=== PATIENT | male | born 1955 | race Caucasian/White ===

== ENCOUNTER 2018-07-28 10:23 | Day surgery (SDC) | payer BC, OTHER ==
[2018-07-24 14:02] VITALS: BMI 29.4
[2018-07-28] MEDS ORDERED: LIDOCAINE HCL 1%, 10 MG/ML (20ML VIAL) ONE ×2 (11:30→12:30)
[2018-07-28 11:35] VITALS: TEMP 97.8
[2018-07-28] MEDS ORDERED: PROPOFOL 20 ML ONE ×2 (12:16)
[2018-07-28] MEDS ORDERED: LIDOCAINE HCL/PF 2% SDV 5ML VIAL ONE (12:16)
[2018-07-28] MEDS ORDERED: fentaNYL CITRATE 250 MCG/5 ML VIAL ONE (12:16)
[2018-07-28] MEDS ORDERED: ceFAZolin SODIUM 1 GM VIAL ONE (12:16)
[2018-07-28] MEDS ORDERED: MIDAZOLAM HCL 2 MG/2 ML SINGLE DOSE VIAL ONE (12:17)
[2018-07-28] MEDS ORDERED: ceFAZolin SODIUM 1 GM VIAL IVPB ONE (12:36)
[2018-07-28] MEDS ORDERED: LIDOCAINE HCL 1%, 10 MG/ML (20ML VIAL) NR ONE (12:54)
[2018-07-28] MEDS ORDERED: BUPIVACAINE HCL/PF 0.5% (5MG/ML) 10 ML VIAL IJ ONE (14:30)
[2018-07-28] MEDS ORDERED: IBUPROFEN 800 MG/8 ML IJ IVPB PRN (15:04)
[2018-07-28] MEDS ORDERED: ONDANSETRON 4 MG/2 ML VIAL IVPUSH PRN (15:04)
[2018-07-28] MEDS ORDERED: oxyCODONE HCL 5 MG TABLET PO PRN (15:04)
[2018-07-28] MEDS ORDERED: LACTATED RINGERS SOLUTION 1,000 ML IV SCH (15:15)
[2018-07-28] MEDS ORDERED: oxyCODONE HCL 5 MG TABLET ONE (17:09)
[2018-07-28 18:33] VITALS: BP 130/71; PULSE 67
--- NOTE | 2018-07-31 13:44 | OP ---
DATE OF OPERATION: 07/28/2018 SURGEONS: Eduardo Samuel DPM and Kris Wright DPM CERTIFIED PHARMACIST ASSISTANT: Mallory Steward, PGY-3 PREOPERATIVE DIAGNOSES: 1. Left foot hallux rigidus. 2. Right foot bunion. POSTOPERATIVE DIAGNOSES: 1. Left foot hallux rigidus. 2. Right foot bunion. PROCEDURE: 1. Left hallux first metatarsophalangeal joint fusion using plate and screws. 2. Right foot Espino bunionectomy. ANESTHESIA: General. PATHOLOGY: Bone and soft tissue. ESTIMATED BLOOD LOSS: 5 mL. HEMOSTASIS: Bilateral ankle tourniquet at 250 mmHg. MATERIALS USED: [place] metatarsal phalangeal joint plate, fusion plate, medium. A 3.5 18-mm locking screw and 3.5 18-mm nonlocking screw, 3.5 14-mm nonlocking screw, 3.5 30-mm cannulated screw, 3.5 16-mm nonlocking screw, and 3.5 20-mm locking screw. Postoperative dressing such as Betadine-soaked Adaptic, 4 x 4's, sterile gauze, Kerlix, and Dominguez bandage used. INJECTABLES: Twenty mL of a 1:1 mixture of 1% lidocaine plain and 0.5% Marcaine plain used for left foot and 15 mL of 1:1 mixture of 1% lidocaine plain and 0.5% Marcaine plain used for right foot. CONDITION OF THE PATIENT: Stable. COMPLICATIONS: None. DESCRIPTION: The patient was brought to the operating room and placed on the operating table in a supine position. A pneumatic ankle tourniquet was then placed on the patient's left ankle. Following general anesthesia, the local anesthesia was obtained using a 1:1 mixture of 1% lidocaine plain with epi. Preoperatively 20 mL was injected throughout the surgical site. The left foot was then scrubbed, prepped, and draped in the usual aseptic manner. An Esmarch bandage was then utilized to exsanguinate the patient's left foot, and the tourniquet was then inflated. Attention was first directed to the dorsal aspect of the first metatarsal of the left foot where a linear incision was made medial and parallel to the tendon of extensor hallucis longus. Incision was then deepened through the subcutaneous tissue using sharp and blunt dissection. Care was taken to identify all vital neural and vascular structures. All bleeders were ligated and cauterized as necessary. At this time, a linear capsulotomy was then performed over the dorsal aspect of the first metatarsophalangeal joint, left foot. The periosteal and capsular structures were then carefully dissected medially and laterally thus exposing the head of the first metatarsal. Attention was first directed to the dorsal aspect of the metatarsal head where the osteophytes were noted, and severe cartilaginous damage was noted to the head of the first metatarsal. Using a rongeur, the dorsal osteophytes were removed from the head of the first metatarsal left foot as well as the base of the proximal phalanx. Using the sagittal saw, the medial prominence, bony prominence was then resected and passed from the operative field and sent to Pathology. All the sharp edges were then smoothened using a rongeur. Next the size of the head was then assessed, and 6.2 K-wire was inserted across the fifth metatarsal to set up the fusion dorsal plate apparatus. Next using the reamer, the head of the first metatarsal was resected about 2 mm for better [id number] contact. At this time, using a [place] plate, metatarsophalangeal joint fusion plate, which was used on the dorsal aspect of the first metatarsophalangeal joint and it was fixated with screws both locking and nonlocking. Also, a 30-mm 3.5 cannulated partially threaded screw was inserted as a compression screw across the osteotomy site across the joint. The initial K-wire was removed and passed from the operative field. At this time the position was accessed and appeared to be in perfect alignment on weightbearing status. The wound was then irrigated with copious amounts or normal saline with bacitracin in it, and the capsular and subcutaneous tissues were sutured using 2-0, 3-0, and 4-0 Vicryl sutures. Skin was closed using 4-0 nylon suture. Postoperative dressing was applied to the left foot which was Betadine-soaked Adaptic, 4 x 4's, sterile gauze, Kerlix, and Dominguez bandage. The left ankle tourniquet was then deflated at this time, and immediate hyperemia was returned to all the digits of the left foot. Next attention was brought to the right foot great toe. The right ankle tourniquet was then inflated. Attention was first directed to the medial aspect of the first metatarsal head of the right foot where a linear incision was made medial and parallel to the tendon of extensor hallucis longus. The incision was then deepened through the subcutaneous tissue using sharp and blunt dissection. Care was taken to identify all vital neural and vascular structures. All bleeders were ligated and cauterized as necessary. At this time a linear capsulotomy was then performed over the dorsal aspect of the first metatarsophalangeal joint. The periosteal and capsular structures were then carefully dissected medially and laterally thus exposing the head of the first metatarsal. Attention was first directed to the medial aspect of the first metatarsal head. Using a sagittal saw, the medial prominence was then resected and passed from the operative field. At this time, the position was accessed, and great position was noted. The wound was then irrigated with copious amounts or normal saline, and the capsular and subcutaneous structures were sutured using 2-0, 3-0, and 4-0 Vicryl sutures. Skin was closed using 4-0 nylon suture. At this time, postoperative dressing was applied to the right foot such as Betadine-soaked Adaptic, 4 x 4's, sterile gauze, Kerlix, and Dominguez bandage, and right ankle tourniquet was then deflated, and immediate hyperemia was returned to all the digits of the right foot. Patient tolerated the procedure and anesthesia well and was transferred to the postanesthesia care unit with vital signs stable and vascular status intact to bilateral lower extremities. Patient will be discharged home after followup with Podiatry and patient was already given instructions and prescriptions which were discussed prior to surgery. Dr. Steward, PGY-3, dictating for LEAH Sexton DPM [id number]
--- NOTE | 2018-08-01 14:06 | PATH ---
Surgical Pathology Report Patient Name: [facility]. Rec. #: [id number] /Age/Gender: 1955 (Age: 63) / M Account: [id number] Location: [facility] SURGICAL Taken: 07/28/2018 Received: 07/31/2018 Reported: 08/01/2018 Physicians: Kris Wright DPM Specimen(s) Received A: BONE LEFT FOOT B: BONE RIGHT FOOT Clinical History Degenerative joint disease, bilateral hallux Final Diagnosis A. FOOT, LEFT, BONE, METATARSOPHALANGEAL JOINT FUSION: BONE WITH DEGENERATIVE CHANGES. B. FOOT, RIGHT, BONE, BUNIONECTOMY: BONE WITH DEGENERATIVE CHANGES. Electronically Signed Tiffany Garrison M.D. Gross Description A. Received in formalin labeled "bone left foot," is a 3.5 x 3.3 x 0.3 cm aggregate of zimmer-yellow, irregular portions of bone. Silk Screen Repairer sections are submitted in one cassette, following decalcification. B. Received in formalin labeled "bone right foot," is a 2.5 x 2.3 x 0.3 cm aggregate of zimmer-yellow, irregular portions of bone. Silk Screen Repairer sections are submitted in one cassette, following decalcification. 07/31/201807/31/2018
== END 2018-07-28 18:39 | disposition home or self-care (01) ==
LOC: JASU-SURG 10:23
PROVIDERS: ATTEND Podiatrist Foot Surgery
PROC: 0SRM0JZ Replacement of Right Metatarsal-Phalangeal Joint with Synthetic Substitute, Open Approach (ICD-10-PCS; 2018-07-28)
PROC: 0SGN04Z Fusion of Left Metatarsal-Phalangeal Joint with Internal Fixation Device, Open Approach (ICD-10-PCS; principal; 2018-07-28 12:00)
DX: M20.22 Hallux rigidus, left foot (principal); M21.611 Bunion of right foot
CPT/HCPCS: 28291; 28750; C1713; 88304-TC; 88305-TC; 88311-TC; 94760

== ENCOUNTER 2018-12-22 06:24 | Day surgery (SDC) | payer BC, OTHER ==
[2018-12-21 09:19] VITALS: BMI 29.1
[2018-12-22] MEDS ORDERED: BUPIVACAINE HCL/PF 0.25% (2.5MG/ML) 10 ML VIAL ONE (07:30)
[2018-12-22] MEDS ORDERED: LIDOCAINE HCL 1%, 10 MG/ML (20ML VIAL) ONE (07:30)
[2018-12-22] MEDS ORDERED: MIDAZOLAM HCL 2 MG/2 ML SINGLE DOSE VIAL ONE (07:30)
[2018-12-22] MEDS ORDERED: ACETAMINOPHEN INJECTION 100 ML IVPB ONE (07:31)
[2018-12-22] MEDS ORDERED: PROPOFOL 20 ML ONE ×2 (07:51→09:54)
[2018-12-22] MEDS ORDERED: ceFAZolin SODIUM 1 GM VIAL IVPB ONE (07:59)
[2018-12-22] MEDS ORDERED: LIDOCAINE HCL 1%, 10 MG/ML (20ML VIAL) NR ONE (08:00)
[2018-12-22] MEDS ORDERED: ceFAZolin SODIUM 1 GM VIAL ONE (08:28)
[2018-12-22] MEDS ORDERED: DEXAMETHASONE SOD PHOSPHATE 4 MG/1 ML VIAL ONE (08:28)
[2018-12-22] MEDS ORDERED: KETOROLAC TROMETHAMINE 30 MG/1 ML VIAL ONE (08:28)
[2018-12-22] MEDS ORDERED: ePHEDrine SULFATE 50 MG/1 ML AMPULE ONE (09:00)
[2018-12-22] MEDS ORDERED: oxyCODONE HCL 5 MG TABLET PO PRN ×2 (09:36)
[2018-12-22] MEDS ORDERED: ONDANSETRON 4 MG/2 ML VIAL IVPUSH PRN (09:36)
[2018-12-22] MEDS ORDERED: LACTATED RINGERS SOLUTION 1,000 ML IV SCH (09:45)
[2018-12-22] MEDS ORDERED: oxyCODONE HCL 5 MG TABLET ONE ×2 (10:56→15:09)
--- NOTE | 2018-12-22 12:01 | OP ---
DATE OF OPERATION: 12/22/2018 PREOPERATIVE DIAGNOSIS: Painful hardware, left foot. POSTOPERATIVE DIAGNOSIS: Painful hardware, left foot. PROCEDURE: Left foot Howard arthroplasty with removal of hardware. ANESTHESIA: General. SURGEONS: Eduardo Samuel DPM, and Kris Wright DPM CORPORATE SALES TRAINER: HEMOSTASIS: Pneumatic ankle tourniquet. ESTIMATED BLOOD LOSS: 10 mL. PATHOLOGY: Bone. OPERATIVE PROCEDURE: The patient was brought to the operating room and placed on the operating table in the supine position. A pneumatic ankle, right tourniquet was then placed on the patients left ankle. Following IV sedation, local anesthesia was obtained utilizing 10 mL of 1% lidocaine plain. The foot was then scrubbed, prepped and draped in the usual aseptic manner. An Esmarch bandage was then utilized to exsanguinate the patients left foot, and tourniquet was inflated. Attention was then directed to the dorsal medial aspect of the 1st metatarsal head of the left foot, where a previous scar was visualized from previous procedure. At this time, a 6-cm linear longitudinal incision through same scar incision was made medial and parallel to the tendon with extensor hallucis longus. Incision was deepened through the subcutaneous tissues using sharp and blunt dissection. Care was taken to identify and retract all vital neural and vascular structures. All bleeders were ligated and cauterized as necessary. At this time, a linear capsulotomy was performed over the dorsal aspect of the 1st metatarsophalangeal joint of the left foot. The periosteal and capsular structures were then carefully dissected free and reflected medially and laterally exposing the head of the 1st metatarsal and the base of the proximal phalanx which was visualized dorsal plate on the 1st metatarsophalangeal joint and plantar to the proximal phalanx, screw was seen passing through the head of the 1st metatarsal. At this time, screwdriver was used to remove all 6 screws from the dorsal plate. All 6 screws were fully intact were removed from the operative field. Plate was broken in half. Both pieces of the complete plate were removed from the operative field, and this was visualized under fluoroscopy. Home run screw was then removed from the proximal phalanx and metatarsal head through separate stab incision. Plantar initial surgical site, the screw was partially threaded and cannulated and fully intact, removed from the operative field with total of 7 screws removed and plate in 2 pieces. At this time, intraoperative fluoroscopy was obtained to confirm no further metallic body had been left in the foot, and it was noted that the plate was eroded over the soft tissue. Surgical site was flushed with copious amounts of sterile saline at this time. Graft at this time reamer was used to prep the head of the 1st metatarsal, overhanging edges were resected using rongeur, and the base of the proximal phalanx was resected about 2-mm wedge using sagittal saw and removed from the operative field. Surgical site was again copiously flushed with normal saline. Graft jacket was prepped and soaked and then applied over the head of the 1st metatarsal beneath the head and over the head and sutured down to the bone. At this time, surgical site was flushed with saline and subcutaneous tissue. Capsule was closed with 3-0 Vicryl and wedge of medial capsule performing capsulorrhaphy was performed to tighten down the medial aspect of the 1st metatarsophalangeal joint . Capsule closed with 3-0 Vicryl, subcutaneous tissue closed with 3-0 Vicryl, and skin closed with 4-0 nylon. A postoperative injection of 20 mL Marcaine 0.5% plain was given at this time. Incision was dressed with Betadine-soaked Adaptic, 4x4s, ABD pad, Dereck and light ANDIE. Following deflating of the tourniquet, immediate hyperemia returned to all digits with capillary refill time less than 3 seconds to all digits of the left foot. The patient tolerated the procedure well and was transferred to the recovery room with all vital signs stable and vascular status intact to the left foot. LEAH Sexton/[id number]
[2018-12-22 16:41] VITALS: BP 123/67; PULSE 82; TEMP 98.2
--- NOTE | 2018-12-25 17:52 | PATH ---
Surgical Pathology Report Patient Name: [facility]. Rec. #: [id number] /Age/Gender: 1955 (Age: 63) / M Account: [id number] Location: [facility] SURGICAL Taken: 12/22/2018 Received: 12/22/2018 Reported: 12/25/2018 Physicians: Eduardo Samuel DPM Specimen(s) Received A: BONE AND SOFT TISSUE LEFT FOOT B: REMOVED HARDWARE Clinical History Broken hardware left foot Final Diagnosis A. BONE AND SOFT TISSUE, FOOT, LEFT, EXCISION: BONE WITH REMODELING AND REACTIVE CHANGES, DENSE FIBROCONNECTIVE TISSUE, AND FIBROADIPOSE TISSUE. B. REMOVED HARDWARE, REMOVAL: SURGICAL HARDWARE. MACROSCOPIC DIAGNOSIS. Electronically Signed Tiffany Garrison M.D. Gross Description A. Received in formalin labeled "bone and tissue left foot," is a 4.5 x 3.5 x 0.6 cm aggregate of zimmer-yellow bone and soft tissue fragments. A bottling equipment sales representative portion is submitted in one cassette, following decalcification. B. Received fresh labeled "removed hardware," are 2 portions of a metallic plate measuring 2.2 x 1.3 x 0.2 cm and 2.5 x 1.3 x 0.2 cm. Also received within the same container are 7 metallic screws ranging from 1.5-3.3 cm in length. No soft tissue is present. No sections are submitted, gross only. /12/22/2018 saudi12/22/2018
== END 2018-12-22 16:25 | disposition home or self-care (01) ==
LOC: JASU-SURG 06:24
PROVIDERS: ATTEND Podiatrist Foot Surgery
PROC: 0SPN04Z Removal of Internal Fixation Device from Left Metatarsal-Phalangeal Joint, Open Approach (ICD-10-PCS; 2018-12-22)
PROC: 3E0U3BZ Introduction of Anesthetic Agent into Joints, Percutaneous Approach (ICD-10-PCS; 2018-12-22)
PROC: 0SQN0ZZ Repair Left Metatarsal-Phalangeal Joint, Open Approach (ICD-10-PCS; principal; 2018-12-22 07:30)
DX: T84.84XA Pain due to internal orthopedic prosthetic devices, implants and grafts, initial encounter (principal); Y79.1 Therapeutic (nonsurgical) and rehabilitative orthopedic devices associated with adverse incidents; Y92.9 Unspecified place or not applicable
CPT/HCPCS: 73630-TC-LT; 88300-TC; 88304-TC; 88311-TC; 94760; 97116-GP; J0131